=== PATIENT | male | born 1960 | race American Indian/Alaskan Native ===

== ENCOUNTER 2021-04-26 17:54 | Emergency (ER) | payer MEDICARE ==
[2021-04-26 18:10] VITALS: BP 166/89
[2021-04-26] MEDS ORDERED: TETANUS,DIPH,PERTUSS(ACELL) VACCINE 0.5 ML SYRINGE IM ONE (20:44)
[2021-04-26] MEDS ORDERED: LIDOCAINE (1%) 10 MG/1 ML VIAL 20 ML MDV INFILTRATI ONE (20:44)
--- NOTE | 2021-04-26 21:09 | Emergency Department Report ---
- General Chief complaint: Skin/Abscess/Foreign Body Stated complaint: FISH HOOKS IN FINGER Time Seen by Provider: 04/26/21 20:44 Source: patient Mode of arrival: Ambulatory Limitations: No Limitations - History of Present Illness Initial comments: Patient is a 60-year-old male who presents emergency room with complaints of a piece of a fishing hook present in the left ring finger that occurred just prior to arrival. Patient states that he was picking up some items in his garage and picked up a piece of fishing gear. He states he did not realize that there was a hook and he got the hook stuck in his left ring finger. He states that he used something to cut part of the fishing hook off but was not able to get the rest out of his finger. He is unsure of his last tetanus immunization. He is able to move the finger without any difficulty. He denies any numbness or weakness. No past medical history. No allergies to medications. - Related Data Previous Rx's Medication Instructions Recorded Last Taken Type cephALEXin [Keflex] 500 mg PO QID 7 Days #28 cap 04/26/21 Unknown Rx Allergies Allergy/AdvReac Type Severity Reaction Status Date / Time No Known Allergies Allergy Verified 04/26/21 18:07 Abscess Boil HPI - HPI Chief Complaint: Skin/Abscess/Foreign Body Stated Complaint: FISH HOOKS IN FINGER Time Seen by Provider: 04/26/21 20:44 Home Medications: Previous Rx's Medication Instructions Recorded Last Taken Type cephALEXin [Keflex] 500 mg PO QID 7 Days #28 cap 04/26/21 Unknown Rx Allergies/Adverse Reactions: Allergies Allergy/AdvReac Type Severity Reaction Status Date / Time No Known Allergies Allergy Verified 04/26/21 18:07 ED Review of Systems ROS: Stated complaint: FISH HOOKS IN FINGER Other details as noted in HPI Comment: All other systems reviewed and negative ED Past Medical Hx - Medications Home Medications: Home Medications Medication Instructions Recorded Confirmed Last Taken Type cephALEXin [Keflex] 500 mg PO QID 7 Days #28 cap 04/26/21 Unknown Rx ED Physical Exam - General Limitations: No Limitations General appearance: alert, in no apparent distress - Head Head exam: Present: atraumatic, normocephalic - Eye Eye exam: Present: normal appearance - ENT ENT exam: Present: mucous membranes moist - Respiratory Respiratory exam: Absent: respiratory distress, accessory muscle use - Neurological Exam Neurological exam: Present: alert, oriented X3 - Psychiatric Psychiatric exam: Present: normal affect, normal mood - Skin Skin exam: Present: warm, dry, other (obvious palpable foreign body present to the palmar surface of the distal left ring finger, FROM of the LUE, neurovascularly intact) ED Course Vital Signs 04/26/21 04/26/21 18:09 21:25 Temperature 97.7 F Pulse Rate 59 L 60 Respiratory 20 18 Rate Blood Pressure 166/89 O2 Sat by Pulse 98 96 Oximetry - Procedure Description Procedures done: Verbal consent obtained by patient. Skin prepped with Betadine, sterile drapes applied, 5 cc of 1% lidocaine without epinephrine used as anesthetic, digital block of the left ring finger performed, made sure to aspirate to make sure that it was not in the vessel, no vessel involvement, good anesthesia achieved, 3 mm incision made with 11 blade, splinter forceps used for complete removal of the rest of the fishing hook, foreign body was able to be removed only difficulty, no complications, bleeding controlled ED Medical Decision Making - Medical Decision Making Patient is a 60-year-old male who presents emergency room with complaints of a piece of a fishing hook present in the left ring finger that occurred just prior to arrival. Patient states that he was picking up some items in his garage and picked up a piece of fishing gear. He states he did not realize that there was a hook and he got the hook stuck in his left ring finger. He states that he used something to cut part of the fishing hook off but was not able to get the rest out of his finger. He is unsure of his last tetanus immunization. He is able to move the finger without any difficulty. He denies any numbness or weakness. No past medical history. No allergies to medications. Vitals are stable. On exam:obvious palpable foreign body present to the palmar surface of the distal left ring finger, FROM of the LUE, neurovascularly intact. Foreign body removed per procedure note without complications. Patient given prescription for Keflex. Advised patient Please take medication as prescribed. Please keep area clean, dry, covered. Wash with antibacterial soap and water pat dry. No hot tub, no pool, no soaking in water. Showering is fine. Follow- up with a primary care doctor. Return to emergency room for any new or worsening symptoms. Critical care attestation.: If time is entered above; I have spent that time in minutes in the direct care of this critically ill patient, excluding procedure time. ED Disposition Clinical Impression: Skin foreign body Disposition: DC-01 TO HOME OR SELFCARE Is pt being admited?: No Does the pt Need Aspirin: No Condition: Stable Instructions: Skin Foreign Body Additional Instructions: Please take medication as prescribed. Please keep area clean, dry, covered. Wash with antibacterial soap and water pat dry. No hot tub, no pool, no soaking in water. Showering is fine. Follow-up with a primary care doctor. Return to emergency room for any new or worsening symptoms. Prescriptions: cephALEXin [Keflex] 500 mg PO QID 7 Days #28 cap Referrals: ARIANA VALENTIN MD [Staff Physician] - 2-3 Days [facility] [Provider Group] - 2-3 Days Time of Disposition: 21:08 Print Language: VIETNAMESE
== END 2021-04-26 21:25 | disposition home or self-care (01) ==
LOC: ED 17:54
DX: S60.455A Superficial foreign body of left ring finger, initial encounter (principal); Z79.899 Other long term (current) drug therapy; X58.XXXA Exposure to other specified factors, initial encounter; Y93.89 Activity, other specified; Y92.89 Other specified places as the place of occurrence of the external cause; Y99.8 Other external cause status
CPT/HCPCS: 90471; 90715

== ENCOUNTER 2021-10-06 07:56 | Emergency (ER) | payer MEDICARE ==
[2021-10-06] MEDS ORDERED: hydrALAZINE 100 MG TAB PO ONE (08:09)
[2021-10-06] MEDS ORDERED: amLODIPine 5 MG TAB PO ONE (08:09)
--- NOTE | 2021-10-06 08:10 | Emergency Department Report ---
ED General Adult HPI - General Chief complaint: High BP Stated complaint: hypertension Source: patient, EMS ( EMS documentation not available at time of chart dictation . Verbal report received from emergency medical services), RN notes reviewed Mode of arrival: Ambulatory Limitations: No Limitations - History of Present Illness Initial comments: The patient was evaluated in the emergency department for symptoms described in the history of present illness. He/she was evaluated in the context of the global COVID-19 pandemic, which necessitated consideration that the patient might be at risk for infection with the virus that causes COVID-19. Institutional protocols and algorithms that pertain to the evaluation of patients at risk for COVID-19 are in a state of rapid change based on information released by regulatory bodies including the CDC and federal and state organizations. These policies and algorithms were followed during the patient's care in the emergency department. Please note that these policies, procedures and recommendations changed on a rapid basis. Nephrology: Dr. Jc Regalado, Dr Trujillo Home antihypertensive medications: Doxazosin, 4 mg each night, hydralazine 100 mg every 8 hours, Norvasc, 10 mg daily, labetalol, 400 mg every 8 hours. The patient reports intermittent compliance with his antihypertensive therapy. He presents to the ER via EMS with a complaint of painless hypertension. He denies additional injuries or complaints. He has not received dialysis today. He believes his last dialysis session was a few days ago. Severity scale (0 -10): 0 Improves with: none Worsens with: none Associated Symptoms: denies other symptoms - Related Data Previous Rx's Medication Instructions Recorded Last Taken Type amLODIPine 10 mg PO DAILY #14 tab 10/06/21 Unknown Rx hydrALAZINE [Apresoline TAB] 10 mg PO Q8H #41 tab 10/06/21 Unknown Rx labetaloL [Labetalol 200mg TAB] 400 mg PO BID 14 Days 10/06/21 Unknown Rx Allergies Allergy/AdvReac Type Severity Reaction Status Date / Time No Known Allergies Allergy Verified 04/26/21 18:07 ED Review of Systems ROS: Stated complaint: hypertension Other details as noted in HPI Comment: All other systems reviewed and negative ED Past Medical Hx - Past Medical History Previous Medical History?: Yes Hx Hypertension: Yes Hx Renal Disease: Yes - Medications Home Medications: Home Medications Medication Instructions Recorded Confirmed Last Taken Type amLODIPine 10 mg PO DAILY #14 tab 10/06/21 Unknown Rx hydrALAZINE [Apresoline TAB] 10 mg PO Q8H #41 tab 10/06/21 Unknown Rx labetaloL [Labetalol 200mg TAB] 400 mg PO BID 14 Days 10/06/21 Unknown Rx ED Physical Exam - General Limitations: No Limitations General appearance: alert, in no apparent distress - Head Head exam: Present: atraumatic, normocephalic - Eye Eye exam: Present: normal appearance, EOMI. Absent: nystagmus - ENT ENT exam: Present: normal exam, normal orophraynx, mucous membranes moist, n ormal external ear exam - Neck Neck exam: Present: normal inspection, full ROM. Absent: tenderness, meningismus - Respiratory Respiratory exam: Present: normal lung sounds bilaterally. Absent: respiratory distress, wheezes, rales, rhonchi, stridor - Cardiovascular Cardiovascular Exam: Present: regular rate, normal rhythm, normal heart sounds. Absent: bradycardia, tachycardia, irregular rhythm, systolic murmur, diastolic murmur, rubs, gallop - GI/Abdominal GI/Abdominal exam: Present: soft. Absent: distended, tenderness, guarding, rebound, rigid, pulsatile mass - Rectal Rectal exam: Present: deferred - Extremities Exam Extremities exam: Present: normal inspection (Upper extremity fistula noted, without redness, pus or streaking.), full ROM, other (2+ pulses noted in the bilateral upper and lower extremities. There is no palpable cord. negative Homans sign. Muscular compartments are soft. The pelvis is stable.). Absent: calf tenderness - Back Exam Back exam: Present: normal inspection, full ROM. Absent: tenderness, CVA tenderness (R), CVA tenderness (L), paraspinal tenderness, vertebral tenderness - Neurological Exam Neurological exam: Present: alert, oriented X3, other (No facial droop. Tongue midline. Extraocular movements intact bilaterally. Facial sensation intact to light touch in V1, V2, V3 distribution bilaterally. 5 and a 5 strength in 4 extremities. Sensation intact to light touch in 4 extremities.). Absent: motor sensory deficit - Psychiatric Psychiatric exam: Present: normal affect, normal mood - Skin Skin exam: Present: warm, dry, intact, normal color. Absent: rash ED Course Vital Signs 10/06/21 10/06/21 10/06/21 07:59 09:52 11:01 Temperature 98.6 F 97.8 F 97.8 F Pulse Rate 65 64 64 Respiratory 16 18 16 Rate Blood Pressure 187/96 Blood Pressure 199/109 187/96 [Right] O2 Sat by Pulse 97 96 98 Oximetry - Reevaluation(s) Reevaluation #1: 10/06/21 09:10 Differential diagnosis, including but not limited to: End-stage renal disease, hypertension, noncompliance, azotemia, uremia, electrolyte derangement Assessment and plan: 61-year-old gentleman, who was afebrile, with reassuring vital signs with the exception of chronic hypertension, who presents to the ER today with a complaint of painless hypertension, and not having had hemod ialysis. Lung sounds are clear, saturating at 97% on room air, potassium is not emergently decompensated. Hypertension is chronic, and he will be prescribed in the emergency room amlodipine, labetalol, and hydralazine. As a courtesy, we will discuss with his covering endless bed drum sander. Chest x-ray sh ows cardiomegaly. At this point in time, I do not anticipate that this patient will require admission or hospitalization. 10/06/21 10:46 Patient resting comfortably in chair. Blood pressure improved. Laboratory studies nonactionable. Discussed patient's history, physical, laboratory studies and clinical impression with consulting endless bed drum sander, Dr. Anderson. We are both in agreement that this patient may be discharged from the emergency room, he is to report to his hemodialysis center today immediately. Dr. Anderson indicates this patient should be able to be dialyzed at [facility] dialysis, [address] [facility]. today ED Medical Decision Making - Lab Data Result diagrams: 10/06/21 08:14 10/06/21 08:14 Lab Results 10/06/21 10/06/21 Range/Units 08:14 08:14 WBC 5.4 (4.5-11.0) K/mm3 RBC 3.38 L (3.65-5.03) M/mm3 Hgb 11.2 L (11.8-15.2) gm/dl Hct 33.6 L (35.5-45.6) % MCV 99 H (84-94) fl MCH 33 H (28-32) pg MCHC 33 (32-34) % RDW 13.1 L (13.2-15.2) % Plt Count 206 (140-440) K/mm3 Sodium 142 (137-145) mmol/L Potassium 4.8 (3.6-5.0) mmol/L Chloride 101.0 (98-107) mmol/L Carbon Dioxide 25 (22-30) mmol/L Anion Gap 21 mmol/L BUN 49 H (9-20) mg/dL Glucose 94 (75-100) mg/dL Calcium 10.4 H (8.4-10.2) mg/dL Vital Signs 10/06/21 07:59 Temperature 98.6 F Pulse Rate 65 Respiratory 16 Rate Blood Pressure 199/109 [Right] O2 Sat by Pulse 97 Oximetry - Radiology Data Radiology results: pending, report reviewed, image reviewed [facility] [address] [place] [address] XRay Report Signed Patient: NANCY AYON MR#: [id number] 9 : 1960 Acct:[id number] Age/Sex: 61 / M ADM Date: 10/06/21 Loc: ED Attending Dr: Ordering Physician: ROCKY SKELTON MD Date of Service: 10/06/21 Procedure(s): XR chest routine 2V Accession Number(s): [id number] cc: ROCKY SKELTON MD Fluoro Time In Minutes: CHEST 2 VIEWS INDICATION: esrd, htn. COMPARISON: none FINDINGS: Support devices: None. Heart: Borderline heart size. Lungs/pleura: Mi ld central pulmonary venous congestion is evident. No evidence for infiltrate, pleural effusion or pneumothorax. Additional findings: None. IMPRESSION: Borderline to mild cardiomegaly and pulmonary venous congestion but no CHF Signer Name: Beau Evangelista Jr, MD Signed: 10/06/2021 8:41 AM Workstation Name: [id number] Transcribed By: TTR Dictated By: BEAU EVANGELISTA JR, MD Electronically Authenticated By: BEAU EVANGELISTA JR, MD Signed Date/Time: 10/06/21840 DD/ 0 Critical care attestation.: If time is entered above; I have spent that time in minutes in the direct care of this critically ill patient, excluding procedure time. ED Disposition Clinical Impression: Hypertension, Noncompliance, End stage renal disease Disposition: HOME / SELF CARE / HOMELESS Is pt being admited?: No Does the pt Need Aspirin: No Condition: Stable Instructions: Hypertension (ED) Additional Instructions: Please remain compliant with your blood pressure medications. Noncompliance with blood pressure medications may cause uncontrolled hypertension, which in turn is a risk factor for stroke, heart attack, disability, paralysis, and loss of quality of life. Please follow-up with your outpatient hemodialysis as scheduled. Please follow-up with your outpatient endless bed drum sander within the next 3 to 5 days for repeat checkup and evaluation. Please return to the emergency room right away with new pain, worsened pain, migration of pain, projectile vomiting, change in mental status, confusion, inability tolerate liquid feeds, new, worsened or different symptoms not present on the initial emergency room evaluation In addition, the patient is to immediately report to his hemodialysis center from the emergency room. He is to go to [facility], [facility], [address] [facility] [facility], [facility], [address] Prescriptions: amLODIPine 10 mg PO DAILY #14 tab hydrALAZINE [Apresoline TAB] 10 mg PO Q8H #41 tab labetaloL [Labetalol 200mg TAB] 400 mg PO BID 14 Days Referrals: LENIN REGALADO MD [Staff Physician] - 3-5 Days
[2021-10-06 08:43] LABS: Hematocrit 33.6 % (35.5-45.6); Hemoglobin 11.2 gm/dl (11.8-15.2); Mean Corpuscular HGB Conc 33 % (32-34); Mean Corpuscular Volume 99 fl (84-94); Platelet Count 206 K/mm3 (140-440); Red Blood Count 3.38 M/mm3 (3.65-5.03); Red Cell Distribution Width 13.1 % (13.2-15.2)
--- NOTE | 2021-10-06 08:46 | XRay Report ---
CHEST 2 VIEWS INDICATION: esrd, htn. COMPARISON: none FINDINGS: Support devices: None. Heart: Borderline heart size. Lungs/pleura: Mild central pulmonary venous congestion is evident. No evidence for infiltrate, pleur al effusion or pneumothorax. Additional findings: None. IMPRESSION: Borderline to mild cardiomegaly and pulmonary venous congestion but no CHF Signer Name: Beau Evangelista Jr, MD Signed: 10/06/2021 8:41 AM Workstation Name: [id number]
[2021-10-06 09:04] LABS: Calcium 10.4 mg/dL (8.4-10.2)
[2021-10-06 10:24] VITALS: BP 187/96
== END 2021-10-06 11:09 | disposition home or self-care (01) ==
LOC: ED 07:56
DX: I12.0 Hypertensive chronic kidney disease with stage 5 chronic kidney disease or end stage renal disease (principal)
CPT/HCPCS: 36415; 71046; 80048; 85027; 99284